=== PATIENT | male | born 1975 | race Caucasian/White ===

== ENCOUNTER → 2018-08-06 | Emergency (ER) | payer SELFPAY ==
[~2018-08-06] MED LIST: KETOROLAC TROMETHAMINE 30 MG/1 ML VIAL ONE; LIDOCAINE 5% TOPICAL PATCH TP ONE; LIDOCAINE PATCH REMOVAL MC SCH; MORPHINE SULFATE 2 MG/ML VIAL ONE; ONDANSETRON *ODT* 4 MG TABLET ONE; ONDANSETRON *ODT* 4 MG TABLET SL ONE; ONDANSETRON 4 MG/2 ML VIAL ONE; diazePAM 5 MG TABLET ONE; morphine CARPU-JECT 2 MG/1 ML DISP.SYRIN IVPUSH ONE; morphine CARPU-JECT 4 MG/1 ML DISP.SYRIN IVPUSH ONE; morphine SULFATE 4 MG/ML VIAL ONE
[2018-08-06 15:24] VITALS: TEMP 98; BMI 28.5
--- NOTE | 2018-08-06 15:31 | PDOC ---
Rapid Medical Evaluation Time Seen by Provider: 08/06/18 15:17 Medical Evaluation: 08/06/18 15:18 Pt presents to the ED for low back pain since 10am this morning after working out. States he fell with 315 pounds on a bar on his shoulders while trying to do a box squat. Denies bladder/bowel incontinence, saddle anesthesia Exam: Pt appears very uncomfortable, numbness to the the 4th and 5th R toes. Orders: labs, urine Pt to proceed to the ED for evaluation Discharge Disposition - Diagnosis Back pain - Referrals - Patient Instructions - Post Discharge Activity
--- NOTE | 2018-08-06 16:53 | PDOC ---
History of Present Illness - General Chief Complaint: Back Pain Stated Complaint: LOWER BACK PAIN Time Seen by Provider: 08/06/18 15:17 History Source: Patient Exam Limitations: No Limitations - History of Present Illness Initial Comments: 42 yo M with no past medical history presents to the emergency department s/p mechanical fall at approximately 11 am resulting in back injury. Per the patient , he was doing box squats when he removed the box and subsequently fell on his buttocks with a 315 lb axial load on his back. immediately afterwords, he had significant pain throughout his spinal column with radiation to his right groin. In addition, he had associative numbness in the S1 distribution pattern on his right foot with numbness in his 4th and 5th toe. Denies LOC and head trauma. Denies the following: incontinence, saddle anesthesia, numbness in the proximal leg, constipation, blood at the meatus of the penis, abdominal pain, dysuria, and hematuria. Meds: None Allergies: NKDA Social: Denies tobacco, alcohol, and substance abuse. Past History - Past Medical History Allergies/Adverse Reactions: Allergies Allergy/AdvReac Type Severity Reaction Status Date / Time No Known Allergies Allergy Verified 08/06/18 15:21 Home Medications: Ambulatory Orders NK [No Known Home Medication] 08/06/18 COPD: No - Suicide/Smoking/Psychosocial Hx Smoking History: Never smoked Hx Alcohol Use: No Drug/Substance Use Hx: No Review of Systems - Review of Systems Able to Perform ROS?: Yes Is the patient limited Greek proficient: No Constitutional: Yes: Weakness. No: Chills, Diaphoresis, Fever HEENTM: No: Eye Pain, Recent change in vision, Ear Pain, Nose Pain, Throat Pain , Mouth Pain Respiratory: No: Cough, Shortness of Breath, Hemoptysis Cardiac (ROS): No: Chest Pain, Lightheadedness, Palpitations, Syncope, Chest Tightness ABD/GI: No: Constipated, Diarrhea, Nausea, Rectal Bleeding, Vomiting, Tarry Stools : No: Hematuria, Urgency Musculoskeletal: Yes: Back Pain (lumbar and thoracic region), Muscle Weakness ( right leg). No: Joint Pain, Neck Pain Integumentary: No: Erythema, Flushing, Pruritus, Rash Neurological: Yes: Numbness (right 4th and 5th toe), Unsteady Gait (due to pain) . No: Headache, Tingling, Tremors, Ataxia, Dizziness Psychiatric: No: Change in Appetite Endocrine: No: Unexplained Weight Gain Hematologic/Lymphatic: No: Anemia *Physical Exam - Vital Signs Last Vital Signs Temp Pulse Resp BP Pulse Ox 98 F 89 18 122/85 99 08/06/18 15:21 08/06/18 15:21 08/06/18 15:21 08/06/18 15:21 08/06/18 15:21 - Physical Exam General Appearance: Yes: Nourished, Appropriately Dressed. No: Apparent Distress, Intoxicated HEENT: positive: EOMI, ALFREDO, Normal Voice, Symmetrical, Pharynx Normal, Hearing Grossly Normal. negative: Pale Conjunctivae, Scleral Icterus (R), Scleral Icterus (L), Muffled/Hoarse voice, Pharyngeal Erythema, Tonsillar Exudate, Tonsillar Erythema, Nasal Congestion, Rhinorrhea, Excessive drooling Neck: positive: Trachea midline, Supple. negative: Tender, Lymphadenopathy (R) , Lymphadenopathy (L), Tender lateral, Tender midline Respiratory/Chest: positive: Lungs Clear, Normal Breath Sounds. negative: Chest Tender, Respiratory Distress, Accessory Muscle Use, Crackles, Rales, Rhonchi, Stridor, Wheezing Cardiovascular: positive: Regular Rhythm, Regular Rate, S1, S2. negative: Systolic Murmur Gastrointestinal/Abdominal: positive: Normal Bowel Sounds, Flat, Soft. negative : Tender Lymphatic: negative: Adenopathy Musculoskeletal: positive: Normal Inspection, Vertebral Tenderness (thoracic at T10, throughout the lumbar sacral region). negative: CVA Tenderness Extremity: positive: Normal Capillary Refill, Normal Inspection, Other ( numbness in 4th and 5th toe on the right). 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 intact, Fully Oriented, Alert, Normal Mood/ Affect, Normal Response Moderate Sedation - Procedure Monitoring Vital Signs: Procedure Monitoring Vital Signs Temperature 98 F 08/06/18 15:21 Pulse Rate 89 08/06/18 15:21 Respiratory Rate 18 08/06/18 15:21 Blood Pressure 122/85 08/06/18 15:21 O2 Sat by Pulse Oximetry (%) 99 02/05/19 15:21 ED Treatment Course - LABORATORY CBC & Chemistry Diagram: 08/06/18 16:45 08/06/18 16:55 - Medications Given in the ED: ED Medications Discontinued Medications Generic Name Dose Route Start Last Admin Trade Name Robina PRN Reason Stop Dose Admin Ondansetron HCl 4 mg 08/06/18 16:02 08/06/18 16:22 Margaux Odt - SL 08/06/18 16:03 4 mg ONCE ONE Administration Medical Decision Making - Medical Decision Making 42 yo M with no past medical history presents to the emergency department s/p mechanical fall at approximately 11 am resulting in back injury. Initial vitals: Initial Vital Signs Temp Pulse Resp BP Pulse Ox 98 F 89 18 122/85 99 08/06/18 15:21 08/06/18 15:21 08/06/18 15:21 08/06/18 15:21 08/06/18 15:21 Work up: ddx: vertebral fracture vs dislocation vs compression vs cord compression vs disc herniation Laboratory Tests 08/06/18 08/06/18 08/06/18 16:45 16:45 16:55 WBC 8.1 RBC 5.09 Hgb 15.5 Hct 44.2 MCV 86.8 MCH 30.6 MCHC 35.2 RDW 13.1 Plt Count 262 MPV 7.8 Absolute Neuts (auto) 5.6 Neutrophils % 69.1 Lymphocytes % 21.5 Monocytes % 7.5 Eosinophils % 1.4 Basophils % 0.5 Nucleated RBC % 0 PT with INR 10.80 INR 0.92 PTT (Actin FS) 32.0 Sodium Potassium Chloride Carbon Dioxide Anion Gap BUN Creatinine Creat Clearance w eGFR Random Glucose Calcium Total Bilirubin AST ALT Alkaline Phosphatase Total Protein Albumin Blood Type B POSITIVE Antibody Screen Negative 08/06/18 16:55 WBC RBC Hgb Hct MCV MCH MCHC RDW Plt Count MPV Absolute Neuts (auto) Neutrophils % Lymphocytes % Monocytes % Eosinophils % Basophils % Nucleated RBC % PT with INR INR PTT (Actin FS) Sodium 138 Potassium 4.0 Chloride 103 Carbon Dioxide 28 Anion Gap 8 BUN 12 Creatinine 0.7 Creat Clearance w eGFR > 60 Random Glucose 92 Calcium 8.8 Total Bilirubin 0.2 AST 14 L ALT 36 Alkaline Phosphatase 53 Total Protein 6.8 Albumin 4.4 Blood Type Antibody Screen cbc, cmp, pt/inr/aptt, and type and screen done for potential pre-operative. A CT cervical, thoracic, and lumbar were ordered. In addition, MRI of the thoracic , cervical and lumbar were ordered to assess for cord syndrome. In addition, a consult with neurosurgery is planned once the CT results come back. the CT scans showed no acute fracture or dislocation. the patient was given 4 mg of morphine followed by 2 mg of morphine with significant relief of pain. the patient refused MRI and wants to leave AMA. 08/06/18 21:57 Patient left AMA because he was unwilling to stay due to conflicts with imaging staff. At the time of this decision, the patient expressed normal mental status and adequate capacity to make medical decisions. This was evident by his logical statements and his ability to understand his disease process. The benefits of the admission was discussed with the patient. This includes MRI of the cervical, thoracic, and lumbar regions to assess if there is nerve impingement with subsequent neurosurgery consultation. Despite these benefits, the patient wished to leave. He was informed of the risks associated with leaving AMA. I explained to the patient that leaving without further workup completion exposes him to the risk of deterioration that includes but not limited to permanent disability and . The patient was able to understand and state the risks and benefits of hospital admission. The patient had the opportunity to ask questions about their medical condition. The patient was treated to the extend that they would allow and knows that they may return for care at any time. At the time of AMA signing, I gave the patient a referral to the primary medical group and advised him to see them within 24 hours after discharge for follow up care and management. I gave him a copy of the CT results and gave return precautions such as loss of sensation, loss of motor function, and inability to void. At the time of discharge, it was witnessed twice by myself and staff that the patient was able to ambulate in the parking lot without difficulty. Upon re- entering the emergency department, the patient regained his difficulty in gait. Dispo: AMA 08/07/18 13:30 08/07/18 13:31 *DC/Admit/Observation/Transfer Diagnosis at time of Disposition: Back pain Qualifiers: Back pain location: low back pain Chronicity: acute Back pain laterality: midline Sciatica presence: unspecified whether sciatica present Qualified Code(s ): M54.5 - Low back pain - Discharge Dispostion Disposition: AGAINST MEDICAL ADVICE Decision to Admit order: No - Referrals Referrals: [facility] [Provider Group] - Patient Instructions Printed Discharge Instructions: DI for Low Back Pain, DI for Back Pain With Sciatica Additional Instructions: you were seen in the emergency department for the evaluation of your back pain. your CT did not show acute fracture. you have refused the MRI. You were advised that their is a possibility of risk of including but not limited to permanent disability or when signing out AMA. please return to the nearest emergency department if you have the following symptoms: weakness in the legs, numbness, incontinence, and inability to void. Please follow up with the primary medical group you have been referred to within 24 hours after discharge. thank you. - Post Discharge Activity
[2018-08-06 17:14] LABS: BASO % 0.5 % (0-2.0); EOS % 1.4 % (0-4.5); HEMATOCRIT 44.2 % (35.4-49); HEMOGLOBIN 15.5 GM/dL (11.7-16.9); LYMPH % 21.5 % (8-40); MCH 30.6 pg (25.7-33.7); MCHC 35.2 g/dl (32.0-35.9); MEAN CELL VOLUME 86.8 fl (80-96); MEAN PLT VOLUME 7.8 fl (7.5-11.1); MONO % 7.5 % (3.8-10.2); NEUT % 69.1 % (42.8-82.8); PLATELET COUNT 262 K/MM3 (134-434); RBC 5.09 M/mm3 (4.00-5.60); RDW 13.1 % (11.9-15.9); WHITE BLOOD COUNT 8.1 K/mm3 (4.0-10.0)
[2018-08-06 17:28] LABS: INR 0.92 (0.83-1.09); PROTHROMBIN TIME (PATIENT) 10.8 SEC (9.7-13.0)
[2018-08-06 17:37] LABS: ALBUMIN 4.4 g/dl (3.4-5.0); ALK PHOS 53 U/L (45-117); ANION GAP 8 MMOL/L (8-16); BILIRUBIN,TOTAL 0.2 mg/dL (0.2-1); BLOOD UREA NITROGEN 12 mg/dL (7-18); CALCIUM 8.8 mg/dL (8.5-10.1); CHLORIDE 103 mmol/L (98-107); CO2 28 mmol/L (21-32); CREATININE 0.7 mg/dL (0.55-1.3); GLUCOSE,RANDOM 92 mg/dL (74-106); SGOT/AST 14 U/L (15-37); SGPT/ALT 36 U/L (13-61); SODIUM 138 mmol/L (136-145); TOT PROT 6.8 g/dl (6.4-8.2)
[2018-08-06 18:27] VITALS: PULSE 80
--- NOTE | 2018-08-06 18:46 | PDOC ---
Attending Attestation - Resident Resident Name: FiorShawn - ED Attending Attestation I have performed the following: I have examined & evaluated the patient, The case was reviewed & discussed with the resident, I agree w/resident's findings & plan, Exceptions are as noted - HPI HPI: 08/06/18 18:39 The patient is a 42 year old male with no significant past medical history who presents to the emergency department with severe back pain s/p injury today. The patient reports that he was at the gym this morning when he attempted to squat 315 pounds. As he went down into a squat position, he fell backwards onto his buttocks. Pt denies headstrike/LOC. He immediately felt pain in his lower back upon impact. States that he was unable to get up afterwards. Pt now endorses pain radiating down RLE with associated R foot numbness. Denies saddle anesthesia. Denies incontinence. - Physicial Exam PE: 08/06/18 18:46 Agree with resident exam - Medical Decision Making 08/06/18 18:48 42 M with lower back pain, R foot numbness after falling on his buttocks while squatting with 315 lbs on his shoulders. Will need to r/o cord compression given mechanism of injury. Exam notable for TTP along T/L spine, no c-spine tenderness or stepoffs. Of note, pt was seen on camera ambulating without pain. However, upon entrance of medical staff into room, pt began to state he is unable to move 2/2 pain. - Labs - CT C/T/L-spine - MRI spine - Nsgy consult - Pain control Pt signed out to oncoming attending Dr. Vital at 7PM, pending CT, neurosurgery consult, and disposition.
[2018-08-06 22:32] VITALS: BP 116/74
== END | disposition left against medical advice (07) ==
LOC: JER 15:10
DX: M54.5 Low back pain (principal); X50.0XXA Overexertion from strenuous movement or load, initial encounter; Y93.B9 Activity, other involving muscle strengthening exercises; W18.39XA Other fall on same level, initial encounter; Y93.B3 Activity, free weights; Y92.89 Other specified places as the place of occurrence of the external cause; Y99.8 Other external cause status
CPT/HCPCS: 36415; 71045-TC-FY; 72125-TC; 72128-TC; 72131-TC; 80053; 85025; 85610; 85730; 86850; 86900; 86901; 99284-25; Q0162

== ENCOUNTER 2018-08-09 12:30 | Emergency (ER) | payer SELFPAY ==
[2018-08-09 12:44] VITALS: BMI 28.5
--- NOTE | 2018-08-09 13:35 | PDOC ---
History of Present Illness - General Chief Complaint: Back Pain Stated Complaint: LOWER BACK PAIN Time Seen by Provider: 08/09/18 12:44 History Source: Patient Exam Limitations: No Limitations - History of Present Illness Initial Comments: 08/09/18 13:28 Pt is a 42yo M with no significant PMH presenting to ED with complaints of worsening back pain s/p mechanical fall that happened 4 days ago when pt fell on buttocks while squatting 315 lbs. He was seen in the ED but left AMA. Pt is endorsing pain in the R lower back with pain radiating down the posterior thigh and has numbness in the lateral aspect of the R foot. He is able to ambulate but states it is difficult due to pain. He denies saddle anesthesia, bowel/ bladder incontinence, headache, syncope, chest pain, sob, abdominal pain, n/v/ d. Past History - Past Medical History Allergies/Adverse Reactions: Allergies Allergy/AdvReac Type Severity Reaction Status Date / Time No Known Allergies Allergy Verified 08/06/18 15:21 Home Medications: Ambulatory Orders Ibuprofen 800 mg PO TID #21 tablet 08/09/18 Methocarbamol [Robaxin -] 750 mg PO Q8H #21 tablet 08/09/18 predniSONE [Deltasone -] 40 mg PO DAILY #3 tablet 08/09/18 COPD: No - Immunization History Immunization Up to Date: Yes - Suicide/Smoking/Psychosocial Hx Smoking History: Unknown if ever smoked Hx Alcohol Use: No Drug/Substance Use Hx: No Review of Systems - Review of Systems Constitutional: No: Symptoms Reported HEENTM: No: Symptoms Reported Respiratory: No: Symptoms reported Cardiac (ROS): No: Symptoms Reported ABD/GI: No: Symptoms Reported : No: Symptoms Reported Musculoskeletal: Yes: See HPI Integumentary: No: Symptoms Reported Neurological: Yes: See HPI *Physical Exam - Vital Signs Last Vital Signs Temp Pulse Resp BP Pulse Ox 97.8 F 64 18 150/90 99 08/09/18 12:42 08/09/18 12:42 08/09/18 12:42 08/09/18 12:42 08/09/18 12:42 - Physical Exam General Appearance: Yes: Nourished, Appropriately Dressed, Moderate Distress HEENT: positive: EOMI, ALFREDO Neck: positive: Trachea midline, Supple. negative: Lymphadenopathy (R), Lymphadenopathy (L) Respiratory/Chest: positive: Lungs Clear, Normal Breath Sounds Cardiovascular: positive: Regular Rhythm, Regular Rate, S1, S2 Vascular Pulses: Carotid (R): 2+, Carotid (L): 2+, Dorsalis-Pedis (R): 2+, Doralis-Pedis (L): 2+ Gastrointestinal/Abdominal: positive: Normal Bowel Sounds, Soft. negative: Rebound, Tenderness Musculoskeletal: positive: Muscle Spasm (R paravertebral at lumbar spine. positive L SLR however refusing to allow passive R SLR. ), Vertebral Tenderness (lumbar. ). 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, Fully Oriented, Alert, Normal Mood/ Affect, Normal Response, Motor Strength 5/5, Sensory Deficit Moderate Sedation - Procedure Monitoring Vital Signs: Procedure Monitoring Vital Signs Temperature 97.8 F 08/09/18 12:42 Pulse Rate 64 08/09/18 12:42 Respiratory Rate 18 08/09/18 12:42 Blood Pressure 150/90 08/09/18 12:42 O2 Sat by Pulse Oximetry (%) 99 08/09/18 12:42 Medical Decision Making - Medical Decision Making 08/10/18 00:12 Pt is a 42yo M with no significant PMH presenting to ED with complaints of worsening back pain s/p mechanical fall that happened 4 days ago when pt fell on buttocks while squatting 315 lbs. He was seen in the ED but left AMA. Pt is endorsing pain in the R lower back with pain radiating down the posterior thigh and has numbness in the lateral aspect of the R foot. He is able to ambulate but states it is difficult due to pain. He denies saddle anesthesia, bowel/ bladder incontinence, headache, syncope, chest pain, sob, abdominal pain, n/v/ d. Vitals: wnl PE: strength 5/5. Numbness in lateral plantar aspect of R foot digits 4 and 5. Normal reflexes. Refusing rectal exam. R paravertebral tenderness, vertebral tenderness. Will order MRI. Pt had CT scans 4 days ago. Pt refusing IV and blood work. Received toradol IM and po valium. MRI showed disc propulsion impinging S1 nerve roots which corresponds to pt symptoms. Asking for steroid shot which cannot be done here in emergency room. Will give 4mg IM morphine. Lidoderm patch ordered and 40mg prednisione. Rx sent. Neuro referral. Will DC. Given return precautions. *DC/Admit/Observation/Transfer Diagnosis at time of Disposition: Radiculopathy Qualifiers: Spinal region: lumbosacral Qualified Code(s): M54.17 - Radiculopathy, lumbosacral region Disc herniation Qualifiers: Spinal region: lumbosacral Qualified Code(s): M51.27 - Other intervertebral disc displacement, lumbosacral region Back pain Qualifiers: Back pain location: low back pain Chronicity: acute Back pain laterality: right Sciatica presence: unspecified whether sciatica present Qualified Code(s) : M54.5 - Low back pain - Discharge Dispostion Disposition: HOME Condition at time of disposition: Good Decision to Admit order: No - Prescriptions Prescriptions: Ibuprofen 800 mg PO TID #21 tablet Methocarbamol [Robaxin -] 750 mg PO Q8H #21 tablet predniSONE [Deltasone -] 40 mg PO DAILY #3 tablet - Referrals Referrals: Herrera Marquez DO [Staff Physician] - Raman Rebolledo MD [Staff Physician] - - Patient Instructions Printed Discharge Instructions: DI for Low Back Pain, DI for Lumbar Radiculopathy Additional Instructions: You were seen in the emergency room today for back pain after an injury. The MRI showed that you have a disc herniation that is impinging the S1 nerve roots which is causing the symptoms that you are experiencing. The pain is due to the nerve impingement. I highly recommend that you follow up with a neurologist. Dr. Rebolledo (neuro) [phone] Three prescriptions were sent to your pharmacy. You can choose to pick them up if you want. I highly recommend you try the medications for it will help reduce the pain. Come back to the emergency room for worsening symptoms. Thank you - Post Discharge Activity
[2018-08-09] MEDS ORDERED: diazePAM 5 MG TABLET PO ONE (13:55)
[2018-08-09] MEDS ORDERED: KETOROLAC TROMETHAMINE 30 MG/1 ML VIAL IVPUSH ONE (13:55)
--- NOTE | 2018-08-09 15:50 | PDOC ---
Attending Attestation - HPI HPI: 08/09/18 16:05 The patient is a 42 year old male with no significant PMH who presents to the emergency department with worsening back pain for 3 days. The patient reports that he was seen in the ED for back pains/p injury at the gym 4 days ago. He states that since signing out AMA a few days ao, his back pain has been worsening with radiation down his right lower extremity. He reports some associated numbness in his right foot and a limp with ambulation secondary to pain. The patient reports that he experienced some frequent urinary episodes last night . he reports taking motrin and tylenol this afternoon prior to arrival to the ED with no significant relief of his pain. The patient denies any other symptoms or complaints. - Physicial Exam PE: 08/09/18 16:05 Vitals: Triage vital signs reviewed General Appearance: No acute distress, well nourished, well developed Head: Atraumatic Chest Wall: Nontender Cardiac: Regular rate and rhythm, no murmurs, no rubs, no gallops Lungs: Clear to auscultation bilateral, good air movement bilaterally Abdomen: Soft, nondistended, normal bowel sounds, nontender to palpation Rectal: Exam deferred Extremities: (+)reproducible lower back discomfort. Weakness below the knee. no cyanosis, clubbing, or edema Skin: Warm and dry, no rashes or lesions, no rash, no petechiae Neuro: AOX3; Cranial Nerves 2-12 grossly intact, Strength intact to all extremities, Sensation intact to all extremities, gait normal Psych: Normal mood, normal affect - Medical Decision Making 08/09/18 16:06 The patient is a 42 year old male with no significant PMH who presents to the emergency department with worsening back pain for 3 days. The plan is pain medication, and MRI. <Nghia Perez - Last Filed: 08/09/18 16:05> - Resident Resident Name: Anne Mercer - ED Attending Attestation I have performed the following: I have examined & evaluated the patient, The case was reviewed & discussed with the resident, I agree w/resident's findings & plan, Exceptions are as noted - Medical Decision Making 08/09/18 16:40 42 years old with trauma to lower back several days ago now second visit to ED initially had walked out of emergency department her first visit now complaining of progressively worsening weakness and numbness to right lower extremity MRI ordered Results pending Dr. Bruno to follow up results and reasses <Herrera Olivares - Last Filed: 08/09/18 16:40> Attestations - Attestations 08/09/18 16:07 Documentation prepared by Nghia Perez, acting as medical center manager for Herrera Olivares MD. <Nghia Perez - Last Filed: 08/09/18 16:05>
[2018-08-09] MEDS ORDERED: morphine CARPU-JECT 2 MG/1 ML DISP.SYRIN IM ONE (18:23)
[2018-08-09] MEDS ORDERED: morphine SULFATE 4 MG/ML VIAL ONE (18:33)
[2018-08-09] MEDS ORDERED: ACETAMINOPHEN 500 MG TABLET (FP) PO ONE (18:58)
[2018-08-09] MEDS ORDERED: LIDOCAINE 5% TOPICAL PATCH TP ONE (18:59)
[2018-08-09] MEDS ORDERED: predniSONE 20 MG TABLET (UD) PO ONE (19:01)
[2018-08-09] MEDS ORDERED: predniSONE 20 MG TABLET (UD) ONE (19:05)
[2018-08-09] MEDS ORDERED: LIDOCAINE 5% TOPICAL PATCH ONE (19:05)
[2018-08-09] MEDS ORDERED: ACETAMINOPHEN 325 MG TABLET (FP) ONE (19:05)
[2018-08-09 19:14] VITALS: BP 146/65; PULSE 86; TEMP 98.2
[2018-08-09] MEDS ORDERED: LIDOCAINE PATCH REMOVAL MC SCH (22:00)
== END 2018-08-09 19:13 | disposition home or self-care (01) ==
LOC: JER 12:30
PROC: 3E0333Z Introduction of Anti-inflammatory into Peripheral Vein, Percutaneous Approach (ICD-10-PCS; principal; 2018-08-09)
DX: M54.17 Radiculopathy, lumbosacral region (principal); M51.27 Other intervertebral disc displacement, lumbosacral region; W18.39XA Other fall on same level, initial encounter; Y93.B3 Activity, free weights; Y92.89 Other specified places as the place of occurrence of the external cause; Y99.8 Other external cause status
CPT/HCPCS: 72148-TC; 99282-25